=== PATIENT | female | born 1955 | race Caucasian/White ===

== ENCOUNTER → 2019-10-09 | Outpatient (CLI) | payer SELFPAY ==
--- NOTE | 2019-10-09 09:16 | Diagnostic Imaging Report ---
PROCEDURE: US left lower extremity venous. TECHNIQUE: Multiple Real-time grayscale images were obtained over the left lower extremity in various projections. Additional duplex Doppler and color Doppler images were also obtained. INDICATION: Left leg pain. FINDINGS: There is no evidence of left lower extremity DVT. The left lower extremity deep venous system shows normal compressibility with normal response to augmentation and Valsalva. In addition, the patient complains of a lump at the level of the mid thigh. This area was evaluated with ultrasound. No underlying abnormality is detected. IMPRESSION: No evidence of left lower extremity DVT. Dictated by: Dictated on workstation # [id number]
== END ==
LOC: RAD 08:00
PROVIDERS: ATTEND Physician Assistant
DX: M79.662 Pain in left lower leg (principal)

== ENCOUNTER 2021-03-25 10:14 | Day surgery (SDC) | payer MEDICARE, OTHER ==
[~2021-03-25] VITALS: Ht 160 cm; Wt 48.0 kg
[~2021-03-25 10:14] MED LIST: COD1CAPS13 PO; CYPR4TAB41 PO; MULT-593 PO; [UNRECOGNIZED DRUG - OTHER] TP
[2021-03-25 10:15] VITALS: BP 124/98
[2021-03-25] MEDS ORDERED: LACTATED RINGERS 1,000 ML IV STA (10:17)
[2021-03-25] MEDS ORDERED: LACTATED RINGERS 1,000 ML IV ONE (10:22)
[2021-03-25] MEDS ORDERED: HURRICAINE EXT TUBE (BENZOCAINE) XX PRN (10:30)
--- NOTE | 2021-03-25 10:53 | Progress Note-Pre Operative ---
Pre-Operative Progress Note H&P Reviewed The H&P was reviewed, patient examined and no changes noted. Date Seen by Provider: Mar 25, 2021 Time Seen by Provider: 10:53 Date H&P Reviewed: Mar 25, 2021 Time H&P Reviewed: 10:53 Pre-Operative Diagnosis: weight loss, blood in stool, dysphagia HUSSAIN WOODS DO Mar 25, 2021 10:53
[2021-03-25] MEDS ORDERED: MIDAZOLAM 2 MG/2 ML (VERSED) VIAL ONE (11:21)
[2021-03-25] MEDS ORDERED: PROPOFOL INJECTION 50 ML IV ONE (11:22)
--- NOTE | 2021-03-25 12:26 | Anesthesia-General Post-Op ---
MAC Patient Condition Mental Status/LOC: Same as Preop Cardiovascular: Satisfactory Nausea/Vomiting: Absent Respiratory: Satisfactory Pain: Controlled Complications: Absent Post Op Complications Complications None Follow Up Care/Instructions Patient Instructions None needed. Anesthesiology Discharge Order Discharge Order Patient is doing well, no complaints, stable vital signs, no apparent adverse anesthesia problems. No complications reported per nursing. ROSAURA SCHWARZ CRNA Mar 25, 2021 12:26
[2021-03-25 12:30] VITALS: BP 136/84
--- NOTE | 2021-03-25 12:31 | Progress Note-Post Operative ---
Post-Operative Progess Note Surgeon (s)/Industrial Engineering Director (s) Surgeon HUSSAIN WOODS DO Industrial Engineering Director: na Pre-Operative Diagnosis weight loss, blood in stool, dysphagia Post-Operative Diagnosis normal egd, colon polyps diverticulosis, hemorrhoids Procedure & Operative Findings Date of Procedure 03/25/21 Procedure Performed/Findings egd, colonoscopy c snare polypectomy x 3 and hot bx polypectomy x 1 Anesthesia Type per lead care manager Estimated Blood Loss Estimated blood loss (mL): none Specimens/Packing Specimens Removed colon polyps HUSSAIN WOODS DO Mar 25, 2021 12:31
[2021-03-25 12:35] VITALS: BP 124/70
[2021-03-25 13:02] VITALS: BP 109/69
[2021-03-25 13:09] VITALS: BP 109/69
--- NOTE | 2021-03-25 17:08 | OPERATIVE REPORT ---
DATE OF SERVICE: 03/25/2021 PREOPERATIVE DIAGNOSES: Weight loss, blood in stool, dysphagia. POSTOPERATIVE DIAGNOSES: Normal esophagogastroduodenoscopy, colon polyps, diverticulosis, hemorrhoids. PROCEDURE: EGD and colonoscopy with snare polypectomy x3 and hot biopsy polypectomy x1. SURGEON: Hussain Kat DO ANESTHESIA: Per JAVA LEAD. ESTIMATED BLOOD LOSS: None. COMPLICATIONS: None. INDICATIONS: The patient is a 65-year-old female with weight loss, blood in stool and dysphagia. She understands risks and benefits of procedure and wished to proceed. Consent was signed in the chart. DESCRIPTION OF PROCEDURE: The patient was taken to the endoscopy suite, placed in left lateral recumbent position. Timeout was performed. Scope was inserted in mouth, down the esophagus, stomach and into the duodenum without difficulty. There were no polyps, masses or ulcerations within the duodenum. Scope was slowly retracted back into the stomach where it was further insufflated. No polyps, masses or ulcerations. Scope was retroflexed noting no other pathology. Scope was returned to its normal position, slowly withdrawn to distal esophagus, which had normal appearance. No polyps, masses or ulcerations. Scope was then slowly retracted back until completely removed. Digital rectal exam was performed. No palpable polyps, masses or ulcerations. Some slight hemorrhoidal disease. Scope was inserted in the rectum and advanced all the way to cecum with minimal difficulty. Prep was adequate with irrigation and suction. The cecum had 2 small polyps, which snare polypectomies were performed. Scope was then continuously retracted in the ascending colon, another polyp was present, which snare polypectomy was performed. Scope was then continuously retracted back. No other polyps, masses or ulcerations within the ascending, transverse and descending colon. In the sigmoid colon, a small polyp was present, which hot biopsy polypectomy was performed. Scope was then continuously retracted back noting just some minimal amount of diverticulosis. Scope was then continuously retracted back in the rectum, it was also retroflexed noting hemorrhoidal disease. No other pathology. Scope was returned to its normal position, slowly withdrawn until completely removed. The patient tolerated procedure well without any complications. She was taken to recovery room in stable condition. RECOMMENDATIONS: Follow up in the office in 2 weeks to discuss biopsy results. We would also consider imaging to further evaluate for weight loss. The patient will need repeat colonoscopy in 3 to 5 years depending upon pathology. Any issues before that be seen at that time. Job ID: [id number] DocumentID: [id number] Dictated Date: 03/25/2021 12:34:29 Internet Network Specialist Date: 03/25/2021 17:08:24 Dictated By: HUSSAIN KAT DO
== END 2021-03-25 13:09 | disposition home or self-care (01) ==
LOC: ENDO 10:14
PROVIDERS: ATTEND Surgery
DX: D12.0 Benign neoplasm of cecum (principal); D12.2 Benign neoplasm of ascending colon; K57.31 Diverticulosis of large intestine without perforation or abscess with bleeding; K64.9 Unspecified hemorrhoids; F17.210 Nicotine dependence, cigarettes, uncomplicated; Z80.0 Family history of malignant neoplasm of digestive organs
CPT/HCPCS: 88305

== ENCOUNTER → 2021-04-08 | Outpatient (CLI) | payer MEDICARE, OTHER ==
[~2021-04-08] MED LIST changes: +CATHETER FLUSH 10 ML SYR IV PRN; +HOLD METFORMIN - RECEIVED CONTRAST 20 ML VIAL IV SCH; +IOHEXOL 350 MG/ML 100 ML (OMNIPAQUE 350) VIAL IV ONE; +NS 100 ML (IVPB) BAG IV ONE
[2021-04-08 08:45] LABS: CREATININE SERUM 0.73 MG/DL (0.60-1.30)
--- NOTE | 2021-04-08 11:27 | Diagnostic Imaging Report ---
EXAMINATION: CT chest, abdomen and pelvis with intravenous contrast. TECHNIQUE: Multiple contiguous axial images were obtained through the chest, abdomen and pelvis after the uneventful administration of intravenous contrast. All CT scans use one or more of the following dose optimizing techniques: automated exposure control, MA and/or KvP adjustment based on patient size and exam type or iterative reconstruction. HISTORY: Unintentional weight loss. COMPARISON: 03/20/2008 FINDINGS: There is no edema or pneumonia. No pleural effusion. No pneumothorax. There is a 4 mm right upper lobe pulmonary nodule (series 3, image 35). There is no axillary or supraclavicular lymphadenopathy. There is no mediastinal lymphadenopathy. Heart size is normal. There are no coronary artery calcifications. No pericardial effusion. Aorta is normal in caliber. The liver is normal without focal lesion. There is no biliary ductal dilation. Gallbladder is normal. Pancreas is normal. Spleen is normal. Adrenal glands are normal. The kidneys are normal. There is no hydronephrosis. Urinary bladder is normal. Bowel is normal in caliber without obstruction or inflammation. No free fluid or air. No abdominal or pelvic lymphadenopathy. Aorta is normal in caliber without aneurysm. There are no suspicious osseous lesions. IMPRESSION: 1. Right upper lobe 4 mm pulmonary nodule. According to the Fleischner Society guidelines: In a low risk patient, no routine follow up is recommended. In a high risk patient, consider optional CT at 12 months. 2. No acute abnormality in the chest, abdomen or pelvis. Dictated by: Dictated on workstation # [id number]
== END ==
LOC: RAD 08:03
PROVIDERS: ATTEND Surgery
DX: R63.4 Abnormal weight loss (principal); R91.1 Solitary pulmonary nodule
CPT/HCPCS: 36415; 71260; 74177; 82565; 84520

== ENCOUNTER → 2022-04-23 | Outpatient (CLI) | payer MEDICARE, OTHER ==
[~2022-04-23] MED LIST changes: -CATHETER FLUSH 10 ML SYR IV PRN
[2022-04-23 12:27] LABS: CREATININE SERUM 0.79 MG/DL (0.60-1.30)
--- NOTE | 2022-04-23 16:48 | Diagnostic Imaging Report ---
PROCEDURE: CT chest, abdomen, and pelvis with contrast. TECHNIQUE: Multiple contiguous axial images were obtained through the chest, abdomen, and pelvis after the administration of intravenous contrast. Auto Exposure Controls were utilized during the CT exam to meet ALARA standards for radiation dose reduction. INDICATION: Abnormal weight loss. COMPARISON: 04/08/2021 FINDINGS: CT CHEST: No abnormality in the trachea. Unchanged 4 mm right upper lobe pulmonary nodule. No suspicious pulmonary nodules. There is no pneumonia or edema. No pleural effusion or pneumothorax. No supraclavicular or axillary lymphadenopathy. Normal heart size. No mediastinal or hilar lymphadenopathy. Normal caliber thoracic aorta. No concerning focal osseous lesions in the chest. CT ABDOMEN AND PELVIS: No free intraperitoneal air or fluid. The liver, gallbladder, spleen and pancreas are normal. No adrenal mass. No renal mass or obstructive uropathy. The urinary bladder is normally filled. Hysterectomy. No adnexal mass. Stomach is decompressed. There are no dilated loops of small bowel. No pericolonic inflammatory change. No worrisome focal osseous lesions. Atherosclerotic aorta is normal in caliber. No abdominal or pelvic lymphadenopathy. IMPRESSION: 1. No adverse development that would suggest neoplastic process. 2. Stable benign 4 mm right upper lobe pulmonary nodule. Dictated by: Dictated on workstation # [id number]
== END ==
LOC: RAD 11:48
PROVIDERS: ATTEND Nurse Practitioner
DX: R63.4 Abnormal weight loss (principal); R91.1 Solitary pulmonary nodule
CPT/HCPCS: 36415; 71260; 74177; 82565; 84520

== ENCOUNTER 2022-04-28 11:02 | Outpatient (CLI) | payer MEDICARE, OTHER ==
[~2022-04-28] VITALS: Ht 160 cm; Wt 45.4 kg
[~2022-04-28 11:02] MED LIST changes: -HOLD METFORMIN - RECEIVED CONTRAST 20 ML VIAL IV SCH; -IOHEXOL 350 MG/ML 100 ML (OMNIPAQUE 350) VIAL IV ONE; -NS 100 ML (IVPB) BAG IV ONE
[2022-04-29] MEDS ORDERED: VITA-189 PO (08:53)
== END 2022-04-29 08:56 ==
LOC: PREOP 11:02
PROVIDERS: ATTEND Surgery
DX: Z01.818 Encounter for other preprocedural examination (principal); K62.5 Hemorrhage of anus and rectum; R63.4 Abnormal weight loss

== ENCOUNTER 2022-05-07 11:46 | Day surgery (SDC) | payer MEDICARE, OTHER ==
[~2022-05-07] VITALS: Ht 160 cm; Wt 45.4 kg
[~2022-05-07 11:46] MED LIST changes: +VITA-189 PO
[2022-05-07] MEDS ORDERED: LACTATED RINGERS 1,000 ML IV STA (11:50)
[2022-05-07] MEDS ORDERED: HURRICAINE EXT TUBE (BENZOCAINE) XX PRN (12:00)
[2022-05-07 12:05] VITALS: BP 116/79
[2022-05-07] MEDS ORDERED: PROPOFOL INJECTION 50 ML IV ONE (12:52)
--- NOTE | 2022-05-07 12:56 | Progress Note-Pre Operative ---
Pre-Operative Progress Note Date H&P Reviewed: May 07, 2022 Time H&P Reviewed: 12:56 History & Physical: H&P Reviewed, Patient Examed, No changes noted Pre-Operative Diagnosis: wt loss, blood per rectum HUSSAIN WOODS DO May 07, 2022 12:56
[2022-05-07] MEDS ORDERED: proPOfol 200 MG/20 ML (DIPRIVAN) VIAL IV ONE (13:29)
[2022-05-07 13:45] VITALS: BP 96/55
--- NOTE | 2022-05-07 13:46 | Discharge Inst-Simple/Standard ---
Discharge Inst-Standard Patient Instructions/Follow Up Plan of Care/Instructions/FU: 2 weeks Shey Activity as Tolerated: Yes Discharge Diet: No Restrictions HUSSAIN WOODS DO May 07, 2022 13:46
--- NOTE | 2022-05-07 13:49 | Progress Note-Post Operative ---
Post-Operative Progess Note Surgeon (s)/Tractor Trailer Mechanic (s) Surgeon HUSSAIN WOODS DO Tractor Trailer Mechanic: na Pre-Operative Diagnosis wt loss, blood per rectum Post-Operative Diagnosis Small Hiatal Hernia Diverticulosis Sigmoid Polyp Procedure & Operative Findings Date of Procedure 05/07/22 Procedure Performed/Findings EGD Colonoscopy with hot biopsy polypectomy Anesthesia Type per MDa Estimated Blood Loss Estimated blood loss (mL): none Specimens/Packing Specimens Removed Sigmoid polyp x1 HUSSAIN WOODS DO May 07, 2022 13:49
[2022-05-07 13:50] VITALS: BP 100/71
[2022-05-07 13:55] VITALS: BP 112/62
[2022-05-07 14:15] VITALS: BP 113/76
[2022-05-07 14:25] VITALS: BP 113/76
--- NOTE | 2022-05-07 15:02 | Anesthesia-General Post-Op ---
MAC Patient Condition Mental Status/LOC: Same as Preop Cardiovascular: Satisfactory Nausea/Vomiting: Absent Respiratory: Satisfactory Pain: Controlled Complications: Absent Post Op Complications Complications None Follow Up Care/Instructions Patient Instructions None needed. Anesthesiology Discharge Order Discharge Order Patient was doing well after the procedure with no complaints, stable vital signs, no apparent adverse anesthesia problems. No complications reported per nursing. LUIS ENRIQUE NÚÑEZ 23, 2023 15:02
--- NOTE | 2022-05-07 19:51 | OPERATIVE REPORT ---
DATE OF SERVICE: 05/07/2022 PREOPERATIVE DIAGNOSIS: Weight loss and rectal bleeding. POSTOPERATIVE DIAGNOSES: Diverticulosis, sigmoid polyp, small hiatal hernia. PROCEDURE: EGD, colonoscopy with hot biopsy polypectomy x1. SURGEON: Artis Kat DO ANESTHESIA: Per MDA. ESTIMATED BLOOD LOSS: None. COMPLICATIONS: None. INDICATIONS: The patient is a 66-year-old female with weight loss and blood per rectum. She understands risks and benefits of procedure and wished to proceed. Consent was signed in chart. DESCRIPTION OF PROCEDURE: The patient was taken to endoscopy suite, placed in the left lateral recumbent position. Timeout was performed. Scope was inserted in the mouth, down the esophagus, stomach, into the duodenum without difficulty. No polyps, masses or ulcerations within the duodenum. Scope was slowly retracted back into the stomach, where it was further insufflated. No polyps, masses or ulcerations. Scope was retroflexed noting a small hiatal hernia, no other pathology. Scope was returned to its normal position, slowly withdrawn until distal esophagus. No polyps, masses or ulcerations. Scope was slowly retracted back until completely removed. Digital rectal exam was performed. No palpable polyps, masses or ulcerations. Scope was inserted in the rectum, advanced all the way to the cecum with minimal difficulty. The patient repositioned a couple times in order to advance scope. Once in the cecum, the prep was adequate. Scope was then slowly retracted back. No polyps, masses or ulcerations in the cecum, ascending, transverse, descending colon. In the sigmoid colon, some diverticulosis present. One polyp present. Hot biopsy polypectomy was performed. Scope was then continuously retracted back in the rectum where it was also retroflexed noting no other pathology. Scope was returned to its normal position, slowly withdrawn until completely removed. The patient tolerated the procedure well without complications, taken to recovery room in stable condition. RECOMMENDATIONS: The patient will need repeat colonoscopy in 5 years unless he has any issues before that, be seen at that time. We will recommend high fiber diet due to diverticulosis. Continue on current medications. The patient's weight loss, she had CT scan chest, abdomen and pelvis, which did not have any acute abnormalities. She has a stable appearance of 4-mm right upper lobe nodule. I would consider a workup of gallbladder if continues to have weight loss for another possible cause or source. Job ID: [id number] DocumentID: [id number] Dictated Date: 05/07/2022 13:54:31 Residential Sales Date: 05/07/2022 19:49:00 Dictated By: DO RADHA BARONE
== END 2022-05-07 14:25 | disposition home or self-care (01) ==
LOC: ENDO 11:46
PROVIDERS: ATTEND Surgery
DX: K63.5 Polyp of colon (principal); K57.30 Diverticulosis of large intestine without perforation or abscess without bleeding; K44.9 Diaphragmatic hernia without obstruction or gangrene; R91.1 Solitary pulmonary nodule; F17.210 Nicotine dependence, cigarettes, uncomplicated; Z28.310 Unvaccinated for COVID-19
CPT/HCPCS: 88305

== ENCOUNTER 2022-09-09 11:45 | Observation (INO) | payer MEDICARE, OTHER ==
[2022-09-09] VITALS (10 sets, daily range): BP systolic 92–118; BP diastolic 57–84
[~2022-09-09] VITALS: Ht 154 cm; Wt 41.0 kg
[2022-09-09] MEDS ORDERED: ASPIRIN 81 MG CHEWABLE TABLET PO ONE (12:00)
--- NOTE | 2022-09-09 12:00 | ED Chest Pain ---
General Chief Complaint: Chest Pain Stated Complaint: CHEST PAINS Nursing Triage Note: PT TO ED WITH C/O CHEST PAIN AND PALPITATIONS THAT HAS BEEN ON AND OFF FOR THE PAST 2 MONTHS AND PROGRESSIVELY GETTING WORSE. WORSENDING THIS AM AFTER WALKING UP STAIRS. WAS SCHEDULED TO SEE HER PCP SOON BUT COULD NOT WAIT. PT ALSO C/O SOB. Source: patient Exam Limitations: no limitations History of Present Illness Date Seen by Provider: Sep 09, 2022 Time Seen by Provider: 11:58 Initial Comments Patient is a 66-year-old female presents ED with chest pain and heart palpitatio ns. She states the symptoms have been on and off for the past 2 months. She states symptoms appear to be getting worse. She states the chest pain usually happens with exertion. She gets winded. Was doing walking and stairs today started having shortness of breath and chest tightness. She is currently pain- free but reports heart palpitations. She has had intermittent heart pa lpitations over the past 2 months as well. History of cardiac work-up several years ago. Strong family history of cardiac disease. She reports nausea without vomiting. She states she feels like she is developing a headache. She reports mild cough. History of smoking and high cholesterol. Denies history of COPD, asthma, CHF, coronary artery disease. She states usually when the symptoms do occur she does breathing techniques to help control her breathing and her chest pain. Denies of any recent travels or surgeries. Denies any leg swelling. Denies fever, chills, body aches, vomiting, diarrhea Allergies and Home Medications Allergies Coded Allergies: levofloxacin (Unverified Allergy, Unknown, 03/18/21) Patient Home Medication List Home Medication List Reviewed: Yes Cod Liver Oil (Cod Liver Oil) 1 Each Capsule, 2 EACH PO DAILY, (Reported) Entered as Reported by: OBI PATEL on 03/18/21 1100 Multivitamin with Minerals (Multiple Vitamin) 1 Each Tablet, 1 EACH PO DAILY, (Reported) Entered as Reported by: OBI PATEL on 03/18/21 1100 Vitamin B Complex (B Complex) 1 Each Tablet, 1 EACH PO, (Reported) Entered as Reported by: ROSIO ADKINS on 04/29/22 0853 Review of Systems Review of Systems Constitutional: No chills, No fever, No malaise, No weakness EENTM: No Double Vision, No Eye Pain Respiratory: Denies Cough; Shortness of Air Cardiovascular: Chest Pain, Palpitations Gastrointestinal: Denies Abdominal Pain, Denies Diarrhea, Denies Nausea, Denies Vomiting Genitourinary: Denies Burning, Denies Discharge Musculoskeletal: No back pain, No joint pain, No joint swelling, No muscle pain, No muscle stiffness Skin: No change in color, No change in hair/nails All Other Systems Reviewed Negative Unless Noted: Yes Past Oeiaenf-Lbmsnm-Pqfkgk Hx Immunizations Up To Date First/Initial COVID19 Vaccinat: NO Second COVID19 Vaccination Marvel: NO Third COVID19 Vaccination Date: NO Seasonal Allergies Seasonal Allergies: Yes Past Medical History Surgeries: Yes (CARPAL TUNNEL) Section Respiratory: No Cardiac: Yes High Cholesterol Neurological: No Genitourinary: No Gastrointestinal: Yes Gastroesophageal Reflux Musculoskeletal: Yes Arthritis Endocrine: No HEENT: No Cancer: No Colon Psychosocial: No Integumentary: No Blood Disorders: No Physical Exam Vital Signs Vital Signs - First Documented 09/09/22 11:51 Temp 36.2 Pulse 108 Resp 26 B/P (MAP) 148/92 (110) Pulse Ox 100 Capillary Refill : Height, Weight, BMI Height: '" Weight: lbs. oz. kg; 16.00 BMI Method: General Appearance: No Apparent Distress, WD/WN HEENT: PERRL/EOMI, TMs Normal, Normal ENT Inspection, Pharynx Normal Neck: Full Range of Motion, Normal Inspection, Non Tender, Supple Respiratory: Chest Non Tender, Lungs Clear, Normal Breath Sounds Cardiovascular: No Gallop, No JVD, No Murmur, Tachycardia Gastrointestinal: Normal Bowel Sounds, No Organomegaly, No Pulsatile Mass Neurologic/Psychiatric: Alert, Oriented x3, No Motor/Sensory Deficits, Normal Mood/Affect, carpenter repair II-XII Norm as Tested Skin: Normal Color, Warm/Dry Progress/Results/Core Measures Results/Orders Lab Results Laboratory Tests Test 09/09/22 11:52 09/09/22 13:54 Range/Units White Blood Count 6.2 4.3-11.0 10^3/uL Red Blood Count 4.14 3.80-5.11 10^6/uL Hemoglobin 14.6 11.5-16.0 g/dL Hematocrit 42 35-52 % Mean Corpuscular Volume 100 H 80-99 fL Mean Corpuscular Hemoglobin 35 H 25-34 pg Mean Corpuscular Hemoglobin Concent 35 32-36 g/dL Red Cell Distribution Width 12.1 10.0-14.5 % Platelet Count 294 130-400 10^3/uL Mean Platelet Volume 9.8 9.0-12.2 fL Immature Granulocyte % (Auto) 0 % Neutrophils (%) (Auto) 53 42-75 % Lymphocytes (%) (Auto) 40 12-44 % Monocytes (%) (Auto) 6 0-12 % Eosinophils (%) (Auto) 1 0-10 % Basophils (%) (Auto) 1 0-10 % Neutrophils # (Auto) 3.3 1.8-7.8 10^3/uL Lymphocytes # (Auto) 2.5 1.0-4.0 10^3/uL Monocytes # (Auto) 0.4 0.0-1.0 10^3/uL Eosinophils # (Auto) 0.0 0.0-0.3 10^3/uL Basophils # (Auto) 0.0 0.0-0.1 10^3/uL Immature Granulocyte # (Auto) 0.0 0.0-0.1 10^3/uL Prothrombin Time 12.3 12.2-14.7 SEC INR Comment 0.9 0.8-1.4 Activated Partial Thromboplast Time 29 24-35 SEC D-Dimer 0.54 H 0.00-0.49 UG/ML Sodium Level 140 135-145 MMOL/L Potassium Level 3.9 3.6-5.0 MMOL/L Chloride Level 104 98-107 MMOL/L Carbon Dioxide Level 22 21-32 MMOL/L Anion Gap 14 5-14 MMOL/L Blood Urea Nitrogen 12 7-18 MG/DL Creatinine 0.76 0.60-1.30 MG/DL Estimat Glomerular Filtration Rate 86 BUN/Creatinine Ratio 16 Glucose Level 153 H 70-105 MG/DL Calcium Level 10.7 H 8.5-10.1 MG/DL Corrected Calcium 8.5-10.1 MG/DL Magnesium Level 1.8 1.6-2.4 MG/DL Total Bilirubin 0.2 0.1-1.0 MG/DL Aspartate Amino Transf (AST/SGOT) 17 5-34 U/L Alanine Aminotransferase (ALT/SGPT) 16 0-55 U/L Alkaline Phosphatase 57 40-136 U/L Myoglobin 16.6 10.0-92.0 NG/ML Troponin I < 0.028 <0.028 NG/ML B-Type Natriuretic Peptide < 10.0 <100.0 PG/ML Total Protein 7.6 6.4-8.2 GM/DL Albumin 4.6 H 3.2-4.5 GM/DL Lipase 47 8-78 U/L My Orders Orders - ELI DOOLEY PA Ekg Tracing (09/09/22 11:47) Cbc With Automated Diff (09/09/22 11:50) Magnesium (09/09/22 11:50) Chest 1 View, Ap/Pa Only (09/09/22 11:50) Comprehensive Metabolic Panel (09/09/22 11:50) Myoglobin Serum (09/09/22 11:50) Protime With Inr (09/09/22 11:50) Partial Thromboplastin Time (09/09/22 11:50) Monitor-Rhythm Ecg Trace Only (09/09/22 11:50) Lipid Panel (09/10/22 06:00) Ed Iv/Invasive Line Start (09/09/22 11:50) Lipase (09/09/22 11:50) Bnp [place] (09/09/22 11:50) Troponin I [place] (09/09/22 11:50) Aspirin Chewable Tablet (Baby Aspirin Ch (09/09/22 12:00) Fibrin Degradation Products (09/09/22 11:57) Ct Angio Chest W (R/O Pe) (09/09/22 12:25) Iohexol Injection (Omnipaque 350 Mg/Ml 1 (09/09/22 12:30) Received Contrast (Hold Metformin- Contr (09/09/22 12:30) Ns (Ivpb) 100 Ml (Sodium Chloride 0.9% 1 (09/09/22 12:30) Nothing By Mouth (09/09/22 Lunch) Ns Iv 1000 Ml (Sodium Chloride 0.9%) (09/09/22 13:31) Troponin I [place] (09/09/22 14:00) Ed Admission (Communication) (09/09/22 13:32) Medications Given in ED Current Medications Medications Dose Ordered Sig/Alejandra Route Start Time Stop Time Status Last Admin Dose Admin Aspirin 324 mg ONCE ONCE PO 09/09/22 12:00 09/09/22 12:01 DC 09/09/22 12:03 324 MG Iohexol 100 ml ONCE ONCE IV 09/09/22 12:30 09/09/22 12:31 DC 09/09/22 12:37 46 ML Sodium Chloride 100 ml ONCE ONCE IV 09/09/22 12:30 09/09/22 12:31 DC 09/09/22 12:37 80 ML Vital Signs/I&O 09/09/22 11:51 Temp 36.2 Pulse 108 Resp 26 B/P (MAP) 148/92 (110) Pulse Ox 100 Blood Pressure Mean: 110 Comment Sinus tachycardia, left atrial lodgment, possible right ventricular conduction delay, minimal ST depression, 104 bpm, QRS duration 84 MS, QTc 404 MS Departure Communication (PCP) Reviewed previous ER visits, H&P, lab testing . patient is a 66-year-old female who presents to ED with chest pain shortness of breath. Symptoms over the past few months worse over the past week. Chest pain with exertion with shortness of breath. Differential diagnoses ACS, PE, pneumonia, exercise-induced asthma. History of smoking, dyslipidemia. Strong family cardiac history. EKG shows sinus tachycardia with minimal ST depression. She did receive a full aspirin 325mg. No current chest pain. Nitro was held. lab work was grossly unremarkable. Normal troponin and BNP. She had no chest pain during her stay but seem to be hyperventilating. Patient Was able to control her breathing here. D-dimer slightly elevated. CT angio of the chest was negative for PE but did note a stable pulmonary nodule upper right nodule. No evidence of pleural effusion, pneumonia, pneumothorax. No wheezing. No recent URI. She reports re cent weight loss. Patient was discussed with Dr. Herman circus train supervisor. Recommended n.p.o. and started on liter fluid and delta troponin at 2 PM. May require cardiac cath later this evening. Patient was discussed with Dr. Billy hospitalist who accept patient. Concern for unstable angina Impression Primary Impression: Chest pain Disposition: ADMITTED INPATIENT Condition: Stable Admissions Decision to Admit Reason: Admit from ER (General) Decision to Admit/Date: Sep 09, 2022 Time/Decision to Admit Time: 12:19 Departure-Patient Inst. Referrals: MODESTO LAI DO (PCP/Family) Primary Care Physician ELI DOOLEY Sep 09, 2022 12:00
[2022-09-09 12:02] LABS: BASOPHILS % (AUTO) 1 % (0-10); EOSINOPHILS % (AUTO) 1 % (0-10); HEMATOCRIT 42 % (35-52); HEMOGLOBIN 14.6 g/dL (11.5-16.0); LYMPHOCYTES # (AUTO) 2.5 10^3/uL (1.0-4.0); LYMPHOCYTES % (AUTO) 40 % (12-44); MEAN CORPUSCULAR HEMOGLOBIN 35 pg (25-34); MEAN CORPUSCULAR HGB CONC 35 g/dL (32-36); MEAN CORPUSCULAR VOLUME 100 fL (80-99); MEAN PLATELET VOLUME 9.8 fL (9.0-12.2); MONOCYTES # (AUTO) 0.4 10^3/uL (0.0-1.0); MONOCYTES % (AUTO) 6 % (0-12); NEUTROPHILS # (AUTO) 3.3 10^3/uL (1.8-7.8); NEUTROPHILS % (AUTO) 53 % (42-75); PLATELET COUNT 294 10^3/uL (130-400); WHITE BLOOD COUNT 6.2 10^3/uL (4.3-11.0)
[2022-09-09 12:16] LABS: ALBUMIN 4.6 GM/DL (3.2-4.5)
[2022-09-09 12:17] LABS: CHLORIDE 104 MMOL/L (98-107); POTASSIUM 3.9 MMOL/L (3.6-5.0); SODIUM 140 MMOL/L (135-145)
[2022-09-09 12:18] LABS: CALCIUM 10.7 MG/DL (8.5-10.1)
[2022-09-09 12:19] LABS: GLUCOSE 153 MG/DL (70-105); INR 0.9 (0.8-1.4); PROTHROMBIN TIME PATIENT 12.3 SEC (12.2-14.7); TOTAL PROTEIN 7.6 GM/DL (6.4-8.2)
[2022-09-09 12:20] LABS: CARBON DIOXIDE 22 MMOL/L (21-32)
[2022-09-09 12:21] LABS: BILIRUBIN,TOTAL 0.2 MG/DL (0.1-1.0)
[2022-09-09 12:22] LABS: ALKALINE PHOSPHATASE 57 U/L (40-136); FIBRIN DEGRADATION PRODUCTS 0.54 UG/ML (0.00-0.49)
[2022-09-09 12:23] LABS: CREATININE SERUM 0.76 MG/DL (0.60-1.30); GFR ESTIMATED 86
[2022-09-09 12:24] LABS: BUN/CREATININE RATIO 16
[2022-09-09 12:26] LABS: ALANINE AMINOTRANSFERASE 16 U/L (0-55); MAGNESIUM 1.8 MG/DL (1.6-2.4)
[2022-09-09 12:27] LABS: LIPASE 47 U/L (8-78)
[2022-09-09] MEDS ORDERED: NS 100 ML (IVPB) BAG IV ONE (12:30)
[2022-09-09] MEDS ORDERED: IOHEXOL 350 MG/ML 100 ML (OMNIPAQUE 350) VIAL IV ONE (12:30)
[2022-09-09] MEDS ORDERED: HOLD METFORMIN - RECEIVED CONTRAST 20 ML VIAL IV SCH (12:30)
--- NOTE | 2022-09-09 12:37 | Diagnostic Imaging Report ---
INDICATION: Chest pain Single AP view of the chest is obtained. COMPARISON: No previous study is available for comparison at this time. FINDINGS: Heart size and pulmonary vasculature are within normal limits, and the lungs are clear, bilaterally. IMPRESSION: Unremarkable chest. Dictated by: Dictated on workstation # [id number]
--- NOTE | 2022-09-09 13:21 | Diagnostic Imaging Report ---
PROCEDURE: CT angiography chest. TECHNIQUE: After intravenous administration of contrast, thin section axial CT angiography of the chest was performed. 3D MIP reconstructions were made. All CT scans use one or more of the following dose optimizing techniques: automated exposure control, MA and/or KvP adjustment based on a patient size and exam type, or iterative reconstruction. INDICATION: Chest pain, shortness of breath. COMPARISON: 04/23/2022 and March 2021. FINDINGS: No significant adenopathy within the chest. No aneurysmal dilatation of the thoracic aorta. The heart is within normal limits in size. No significant pericardial effusion. No pleural effusion. The trachea is patent. No pneumothorax. 0.5 cm subpleural right upper lobe pulmonary nodule is identified posteriorly. The lungs are otherwise clear of focal pulmonary opacity. No significant filling defect within the central or segmental pulmonary arteries. The minimally visualized upper abdomen is unremarkable. No acute osseous abnormality. IMPRESSION: No significant pulmonary embolus. No acute abnormality within the chest. 0.5 cm subpleural right upper lobe pulmonary nodule. This is not significantly changed since March 2021. If patient is at high risk for lung cancer, then a follow-up CT of the chest would be recommended in one year. If patient is at low risk for lung cancer, no definitive follow-up of this pulmonary nodule would be necessary. Dictated by: Dictated on workstation # [id number]
[2022-09-09] MEDS: NS IV 1000 ML 1,000 ML IV STA ×2 (13:35→13:37)
[2022-09-09] MEDS ORDERED: LIDOCAINE 1% INJ 20 ML VIAL ONE (14:12)
[2022-09-09] MEDS ORDERED: NS IV 1000 ML 1,000 ML ONE (14:13)
[2022-09-09] MEDS ORDERED: HEParin (CATH LAB) 2,000 ML IV ONE (14:13)
[2022-09-09] MEDS ORDERED: MIDAZOLAM 5 MG/5 ML (VERSED) VIAL ONE (14:30)
[2022-09-09] MEDS ORDERED: VERAPAMIL 5 MG/2 ML (CALAN) VIAL IV ONE (14:30)
[2022-09-09] MEDS ORDERED: HEParin 1000 UNIT/ML (10ML VIAL) FOR BOLUS ONE (14:30)
[2022-09-09] MEDS ORDERED: fentaNYL INJ 100 MCG/2 ML AMP ONE (14:30)
[2022-09-09] MEDS ORDERED: NITRO DRIP 25000 MCG/D5W 250 ML IV ONE (14:30)
--- NOTE | 2022-09-09 14:58 | Cardiac Procedure Note-CS/ASA ---
Pre-Procedure Note Pre-Op Procedure Note Date of Available H&P: Sep 09, 2022 Date H&P Reviewed: Sep 09, 2022 Time H&P Reviewed: 14:58 History & Physical: H&P Reviewed, Patient Examed, No changes noted Pre-Operative Diagnosis: CP Moderate Sedation PreProcedure Time 14:58 ASA Score 3 Airway Lungs Heart ASA score ASA 1: a normal healthy patient ASA 2: a patient with a mild systemic disease (mid diabetes, controlled hypertension, obesity ASA 3: a patient with a severe systemic disease that limits activity (angina, COPD, prior Myocardial infarction) ASA 4: a patient with an incapacitating disease that is a constant threat to life (CHF, renal failure) ASA 5: a moribund patient not expected to survive 24 hrs. (ruptured aneurysm) ASA 6: a declared brain- patient whose organs are being harvested. For emergent operations, add the letter E after the classification Mallampati Classification Grade 3 Sedation Plan Analgesia, Amnesia, Plan communicated to team members, Discussed options with patient/fam, Discussed risks with patient/fam The patient is an appropriate candidate to undergo the planned procedure, sedation, and anesthesia. The patient immediately re-assessed prior to indication. KENNY BROWN MD Sep 09, 2022 14:58
--- NOTE | 2022-09-09 15:07 | Consultation-Cardiology ---
HPI-Cardiology Cardiology Consultation Date of Consultation 09/09/22 Date of Admission Time Seen by Provider: 14:00 Indication: Chest pain HPI Patient is a 66 y/o female with history of HLP, tobaccoism, recent weight loss. Presented to the ER with complaints of intermittent chest pains and palpitations for the past 2 months. Patient reports chest pain with exertion, increasing over the past week. States she was walking her dog earlier in the day and had to stop d/t chest pain. Denies any history of CAD. Reports strong family hx CAD Home Medications & Allergies Allergies: Coded Allergies: levofloxacin (Unverified Allergy, Unknown, 03/18/21) Home Medication List Reviewed: Yes UGG-Mysyfp-Kiuvxb Hx Patient Social History Smoking Status: Current Everyday Smoker Type Used: Cigarettes 2nd Hand Smoke Exposure: Yes Recent Hopitalizations: No Alcohol Use?: No Past Medical History HLP, tobaccoism Review of Systems-General Review of Systems Constitutional: see HPI; No chills, No fever, No malaise, No weakness EENTM: see HPI Respiratory: see HPI, dyspnea on exertion; No orthopnea Cardiovascular: see HPI, chest pain, edema; No Hx of Intervention; palpitations; No syncope, No vascular heart diseas Musculoskeletal: No back pain, No joint pain, No joint swelling, No muscle pain, No muscle stiffness Skin: No change in color, No change in hair/nails All Other Systems Reviewed Negative Unless Noted: Yes Reviewed Test Results Reviewed Test Results Lab Laboratory Tests 09/09/22 11:52: White Blood Count 6.2, Red Blood Count 4.14, Hemoglobin 14.6, Hematocrit 42, Mean Corpuscular Volume 100H, Mean Corpuscular Hemoglobin 35H, Mean Corpuscular Hemoglobin Concent 35, Red Cell Distribution Width 12.1, Platelet Count 294, Mean Platelet Volume 9.8, Immature Granulocyte % (Auto) 0, Neutrophils (%) (Auto) 53, Lymphocytes (%) (Auto) 40, Monocytes (%) (Auto) 6, Eosinophils (%) (Auto) 1, Basophils (%) (Auto) 1, Neutrophils # (Auto) 3.3, Lymphocytes # (Auto) 2.5, Monocytes # (Auto) 0.4, Eosinophils # (Auto) 0.0, Basophils # (Auto) 0.0, Immature Granulocyte # (Auto) 0.0, Prothrombin Time 12.3, INR Comment 0.9, Activated Partial Thromboplast Time 29, D-Dimer 0.54H, Sodium Level 140, Potassium Level 3.9, Chloride Level 104, Carbon Dioxide Level 22, Anion Gap 14, Blood Urea Nitrogen 12, Creatinine 0.76, Estimat Glomerular Filtration Rate 86, BUN/Creatinine Ratio 16, Glucose Level 153H, Calcium Level 10.7H, Corrected Calcium , Magnesium Level 1.8, Total Bilirubin 0.2, Aspartate Amino Transf (AST/SGOT) 17, Alanine Aminotransferase (ALT/SGPT) 16, Alkaline Phosphatase 57, Myoglobin 16.6, Troponin I < 0.028, B-Type Natriuretic Peptide < 10.0, Total Protein 7.6, Albumin 4.6H, Lipase 47 09/09/22 13:54: ECG Impression ECG Initial ECG Rhythm: S.Tach Physical Exam Physical Exam Vital Signs Vital Signs - First Documented 09/09/22 09/09/22 11:51 14:12 Temp 36.2 Pulse 108 Resp 26 B/P (MAP) 148/92 (110) Pulse Ox 100 O2 Delivery Room Air Capillary Refill : Height, Weight, BMI Height: '" Weight: lbs. oz. kg; 16.65 BMI Method: General Appearance: No Apparent Distress, WD/WN HEENT: PERRL/EOMI, TMs Normal, Normal ENT Inspection, Pharynx Normal Neck: Full Range of Motion, Normal Inspection, Non Tender, Supple Respiratory: Chest Non Tender, Lungs Clear, Normal Breath Sounds Cardiovascular: No Gallop, No JVD, No Murmur, Tachycardia Gastrointestinal: Normal Bowel Sounds, No Organomegaly, No Pulsatile Mass Neurologic/Psychiatric: Alert, Oriented x3, No Motor/Sensory Deficits, Normal Mood/Affect, automatic spooler operator II-XII Norm as Tested Skin: Normal Color, Warm/Dry A/P-Cardiology Admission Diagnosis Chest pain HLP Tobaccoism Pulmonary nodule Assessment/Plan Chest pain, resembling unstable angina. EKG done in ER showing sinus tachycardia without acute ST changes. Initial troponin negative. Will repeat troponin. Patient reports chest pain and palpitations for the past 2 months, worsening recently. Multiple risk factors for underlying CAD. Will plan for [facility] for further evaluation HLP, has been taking fish oil as outpatient. Will evaluate lipid profile. Tobaccoism, educated on the importance of smoking cessation Pulmonary nodule CTA done today showing 0.5 cm subpleural right upper lobe pulmonary nodule. This is not significantly changed since March 2021. Hx of blood in stool, underwent colonoscopy with Dr. Kat in April 2022 showing small hiatal hernia, diverticulosis and sigmoid polyp GERD Recent weight loss Thank you for allowing us to participate in the management of Ms. Jordan. This is Jeannette Arreola PA-C, as a scribe for Dr. Herman. Patient was seen and evaluated with Jeannette, she was having recurrent chest pain, reporting improvement, classic angina symptoms. I interviewed and examined the patient and discussed the management plan with Jeannette, agree with the current scribed note Due to her classic symptoms, I decided to proceed with coronary angiogram urgently Monitor blood pressure and lipids Patient has history of pulmonary nodule which will be followed as an outpatient. Patient had recently lost significant weight. Had work-up done as an outpatient. JEANNETTE QUINTANA Sep 09, 2022 15:07 KENNY HERMAN MD Sep 09, 2022 15:26
[2022-09-09] MEDS ORDERED: morphine INJ 4 MG/ML 1 ML (VIAL/SYRINGE) IV PRN (15:15)
[2022-09-09] MEDS ORDERED: PATIENT MAY USE OWN MEDS, ALL PO SCH (15:15)
[2022-09-09] MEDS ORDERED: ONDANSETRON 4 MG/2 ML (SDV) Z0FRAN IVP PRN (15:15)
[2022-09-09] MEDS ORDERED: NITROGLYCERIN 0.4 MG SL TABS BTL 25'S SL PRN (15:15)
--- NOTE | 2022-09-09 15:51 | Cardiac Cath Report ---
Cardiac Cath Report Physician (s)/Branner Machine Tender (s) Physician KENNY BROWN MD Pre-Procedure Diagnosis Pre-Procedure Diagnosis: CP Post-Procedure Note Procedure Start Date: Sep 09, 2022 Procedure Start Time: 15:47 Name of Procedure: Left heart catheterization Aortic root angiogram Aortic arch angiogram Findings/Procedure Note PROCEDURE NOTE: 66-year-old lady with history of hypertension, admitted with acute chest pain resembling angina, cardiac catheterization was advised. After explaining the procedure to the patient, all pros and cons were explained, all questions were answered. The patient signed the consent and then she was placed in the cardiac catheterization laboratory. Groin was prepped in SL fashion local anesthesia was used. Sheath placed in the right radial artery, [place] catheter was advanced to the left ventricular cavity, pressure was measured, pullback LV to aorta was done, engage the right and left coronary system, angiogram was done. During the last angiogram on the right coronary artery, contrast was extravasated in the area around the aortic cusps. I exchanged the catheter and placed a pigtail catheter down to the aortic root and angiogram was done then pulled the pigtail up to the aortic arch and aortic arch angiogram was done then repeated fluoroscopy at the end of the procedure after waiting for 10 minutes and persistence of contrast around the aortic cusp was noted. At the end of the procedure the sheath was removed. Vascular band was used FINDINGS: Hemodynamics LV 101/7, end-diastolic pressure of 7 Aorta 106/71 mean of 88 ANATOMY: Left Main is free of obstructive disease Left Anterior Descending is free of obstructive disease Left Circumflex is free of obstructive disease Right Coronary Artery is dominant artery with no obstructive disease LV Gram was not done, pressure was measured Aorta evaluation done with aortic root angiogram showing normal aortic root no dissection or aneurysm no significant aortic regurgitation, there is persistence of contrast around the aortic cusps. Aortic arch angiogram showed normal aortic arch, no dissection or aneurysm, normal origin of the great vessels of the neck including the brachiocephalic artery, left carotid and left subclavian arteries CONCLUSION: Dominant right coronary system with no obstructive disease in the coronary system Normal left ventricular end-diastolic pressure Normal aortic root and aortic arch DISCUSSION AND RECOMMENDATION: Conservative management is recommended, repeat CT of the chest without contrast Anesthesia Type: Conscious Sedation Estimated blood loss (mL): 15 ml Contrast Amount: 42 ml Post-Procedure Diagnosis Post-operative diagnosis: Chest pain Coronary artery disease Hypertension Tobaccoism Pulmonary nodule KENNY BROWN MD Sep 09, 2022 15:51
[2022-09-09] MEDS: NS IV 1000 ML 1,000 ML IV SCH ×2 (16:50→20:22)
[2022-09-10 03:36] VITALS: BP 95/76
[2022-09-10 05:58] LABS: TRIGLYCERIDES 54 MG/DL (<150); VLDL CHOLESTEROL 11 MG/DL (5-40)
[2022-09-10 06:02] LABS: CHOLESTEROL 197 MG/DL (< 200)
[2022-09-10 06:03] LABS: HDL CHOLESTEROL 63 MG/DL (40-60)
[2022-09-10 07:40] VITALS: BP 110/82
[2022-09-10 08:11] LABS: ABSOLUTE RETIC # 43 10e9/uL (24-90); BASOPHILS % (AUTO) 0 % (0-10); EOSINOPHILS # (AUTO) 0.1 10^3/uL (0.0-0.3); EOSINOPHILS % (AUTO) 2 % (0-10); HEMATOCRIT 35 % (35-52); HEMOGLOBIN 12.3 g/dL (11.5-16.0); LYMPHOCYTES # (AUTO) 2.6 10^3/uL (1.0-4.0); LYMPHOCYTES % (AUTO) 51 % (12-44); MEAN CORPUSCULAR HEMOGLOBIN 35 pg (25-34); MEAN CORPUSCULAR HGB CONC 35 g/dL (32-36); MEAN CORPUSCULAR VOLUME 101 fL (80-99); MEAN PLATELET VOLUME 11.2 fL (9.0-12.2); MONOCYTES # (AUTO) 0.5 10^3/uL (0.0-1.0); MONOCYTES % (AUTO) 10 % (0-12); NEUTROPHILS # (AUTO) 1.9 10^3/uL (1.8-7.8); NEUTROPHILS % (AUTO) 37 % (42-75); PLATELET COUNT 245 10^3/uL (130-400); RETICULOCYTE % 1.24 % (0.50-2.40); WHITE BLOOD COUNT 5.1 10^3/uL (4.3-11.0)
--- NOTE | 2022-09-10 08:15 | History & Physical-Hospitalist ---
History of Present Illness HPI/Chief Complaint Patient is 66-year-old female with past medical history of tobacco abuse hyperlipidemia and weight loss who presented to the emergency department due to chest pain. She states that she has had on and off chest pain for roughly 2 months and is worse with exertion. She states her biggest issue though is that she gets dyspneic with any type of exertion and then developed some chest pain. She denies any history of cardiac disease but does report multiple members of her family have had heart disease. Is also concerned about her weight loss. She states she was 108 pounds in October 2021 and is now down to 89 pounds. He has had 2 colonoscopies in the last 18 months. She had one in March 2021 for weight loss so this seems to be more longstanding. She is concerned she has amyloidosis. She underwent cardiac cath yesterday which showed no significant disease though there was concern for extravasation of the contrast so cardiology commended repeat CT without contrast this morning to further evaluate. She reports she is very anxious to go as she has ducks that she needs to take care of. She is even considering leaving AGAINST MEDICAL ADVICE if not discharged in a timely fashion. Source: patient Date Seen 09/10/22 Time Seen by a Provider: 08:11 Attending Physician Donald Aguilera DO PCP Admitting Physician: Kassy Billy MD Attending Physician: Kassy Billy MD Referring Physician Date of Admission Sep 09, 2022 at 14:05 Home Medications & Allergies Home Medications Reviewed patient Home Medication Reconciliation performed by pharmacy medication reconciliations freezer laboratory technician and/or nursing. Patients Allergies have been reviewed. Allergies Allergies Coded Allergies levofloxacin (Unverified Allergy, Unknown, 03/18/21) Past Metbqww-Dncvxq-Foxoar Hx Patient Social History Tobacco Use?: Yes Tobacco type used: Cigarettes Smoking Status: Current Everyday Smoker Smokeless Tobacco Frequency: Current Everyday User Use of E-Cig and/or Vaping dev: No Substance use?: No Alcohol Use?: No Pt feels they are or have been: No Immunizations Up To Date First/Initial COVID19 Vaccinat: NO Second COVID19 Vaccination Marvel: NO Seasonal Allergies Seasonal Allergies: Yes Current Status status: No status: No Advance Directives: No Communicates: Verbally Primary Language: Cuban Preferred Spoken Language: Cuban Is interpretation needed?: No Sensory deficits: Vision impairment Implanted or Applied Medical D: None Past Medical History Surgeries: Section High Cholesterol Gastroesophageal Reflux Arthritis Colon Blood Disorders: No Review of Systems Constitutional: see HPI Physical Exam Physical Exam Vital Signs Vital Signs - First Documented 09/09/22 09/09/22 11:51 14:12 Temp 36.2 Pulse 108 Resp 26 B/P (MAP) 148/92 (110) Pulse Ox 100 O2 Delivery Room Air Capillary Refill : Less Than 3 Seconds Height, Weight, BMI Height: '" Weight: lbs. oz. kg; 17.28 BMI Method: General Appearance: No Apparent Distress, Thin Respiratory: Lungs Clear, No Respiratory Distress Cardiovascular: Regular Rate, Rhythm, No Murmur Gastrointestinal: Normal Bowel Sounds, Soft Extremity: Normal Capillary Refill, No Calf Tenderness, No Pedal Edema Neurologic/Psychiatric: Alert, Oriented x3, Normal Mood/Affect Results Results/Procedures Labs Laboratory Tests 09/09/22 11:52 09/10/22 05:17 Patient resulted labs reviewed. Imaging: Reviewed Imaging Report [facility] [place], [place] NAME: RAJNI MARTINEZ [facility] REC#: [id number] PT STATUS: ADM Mago : 1955 PHYSICIAN: ELI DOOLEY ADMIT DATE: 09/09/22/[facility] Signed Date of Exam:09/09/22 CHEST 1 VIEW, AP/PA ONLY INDICATION: Chest pain Single AP view of the chest is obtained. COMPARISON: No previous study is available for comparison at this time. FINDINGS: Heart size and pulmonary vasculature are within normal limits, and the lungs are clear, bilaterally. IMPRESSION: Unremarkable chest. Dictated by: Dictated on workstation # [id number] Dict: 09/09/22 1232 Trans: 09/10/22 0812 [facility] [id number] Interpreted by: BA ROMERO MD Electronically signed by: BA ROMERO MD 09/10/22811 [facility] [place] NAME: MICHELLERAJNI [employer] [facility] REC#: [id number] PT STATUS: REG ER : 1955 PHYSICIAN: ELI DOOLEY ADMIT DATE: 09/09/22/ER Signed Date of Exam:09/09/22 CT ANGIO CHEST W (R/O PE) PROCEDURE: CT angiography chest. TECHNIQUE: After intravenous administration of contrast, thin section axial CT angiography of the chest was performed. 3D MIP reconstructions were made. All CT scans use one or more of the following dose optimizing techniques: automated exposure control, MA and/or KvP adjustment based on a patient size and exam type, or iterative reconstruction. INDICATION: Chest pain, shortness of breath. COMPARISON: 04/23/2022 and March 2021. FINDINGS: No significant adenopathy within the chest. No aneurysmal dilatation of the thoracic aorta. The heart is within normal limits in size. No significant pericardial effusion. No pleural effusion. The trachea is patent. No pneumothorax. 0.5 cm subpleural right upper lobe pulmonary nodule is identified posteriorly. The lungs are otherwise clear of focal pulmonary opacity. No significant filling defect within the central or segmental pulmonary arteries. The minimally visualized upper abdomen is unremarkable. No acute osseous abnormality. IMPRESSION: No significant pulmonary embolus. No acute abnormality within the chest. 0.5 cm subpleural right upper lobe pulmonary nodule. This is not significantly changed since March 2021. If patient is at high risk for lung cancer, then a follow-up CT of the chest would be recommended in one year. If patient is at low risk for lung cancer, no definitive follow-up of this pulmonary nodule would be necessary. Dictated by: Dictated on workstation # [id number] Dict: 09/09/22 1311 Trans: 09/09/22 1342 [id number] Interpreted by: JADA ARNDT MD Electronically signed by: JADA ARNDT MD 09/09/22 1342 Assessment/Plan Admission Diagnosis Chest pain Admission Status: Observation Assessment and Plan Chest pain Trop negative s/p cath- no significant obstructive disease Cardiology noted extravasation of contrast during the cath- CT chest ordered this AM- spoke with radiology about it as delay in report Weight loss Tobacco abuse Had a colonoscopy and EGD 2x withint he last 18 months Polyps, divirticulosis, and hiatal hernia noted Referral for Dr Kat placed Plans to follow up with Dr Aguilera to establish care Concerned she has amyloidosis- recommended outpatient follow up with Dr Aguilera- I called and spoke with him regarding this Pulmonary nodule Stable since 2021 CT Needs outpatient follow up Copy Copies To 1: DONALD AGUILERA KATELYN M MD Sep 10, 2022 08:15
[2022-09-10 08:47] LABS: EOSINOPHILS % (MANUAL) 1 %; LYMPHOCYTES % (MANUAL) 51 %; MONOCYTES % (MANUAL) 12 %; NEUTROPHILS % (MANUAL) 33 %; REACTIVE LYMPHOCYTES 3 %
[2022-09-10 08:48] LABS: ANISOCYTOSIS SLIGHT
--- NOTE | 2022-09-10 08:57 | Cardiology Progress Note ---
Subjective Date Seen by Provider: Sep 10, 2022 Time Seen by Provider: 08:56 Subjective/Events-last exam Patient was seen at bedside, laying down comfortably, feeling better today. Review of Systems General: No Chills, No Night Sweats, No Fatigue, No Malaise, No Appetite, No Other HEENT: No Head Aches, No Visual Changes, No Eye Pain, No Ear Pain, No Dysphasia, No Sinus Congestion, No Post Nasal Drip, No Sore Throat, No Other Pulmonary: No Dyspnea, No Cough, No Pleuritic Chest Pain, No Other Cardiovascular: No: Chest Pain, Palpitations, Orthopnea, Paroxysmal Noc. Dyspnea, Edema, Lt Headedness, Other Objective-Cardiology Exam Last Set of Vital Signs Vital Signs 09/10/22 07:40 Temp 36.2 Pulse 74 Resp 20 B/P (MAP) 110/82 (91) Pulse Ox 98 O2 Delivery Room Air I&O Intake and Output 09/10/22 00:00 Intake Total 1400 ml Output Total 1100 ml Balance 300 ml Intake Oral 400 ml IV Total 1000 ml Output Urine Total 1100 ml Daily Weight Change Yes, 2-13 lbs General: Alert, Oriented X3, Cooperative HEENT: Atraumatic, PERRLA Neck: Supple, No JVD, No Thyromegaly Lungs: Clear to Auscultation, Normal Air Movement Heart: Regular Rate, Normal S1, Normal S2, No Murmurs Abdomen: Normal Bowel Sounds, Soft, No Tenderness, No Hepatosplenomegaly, No Masses Extremities: No Clubbing, No Cyanosis, No Edema, Normal Pulses, No Tenderness/Swelling Skin: No Rashes, No Breakdown, No Significant Lesion Neuro: Normal Gait, Normal Speech, Strength at 5/5 X4 Ext, Normal Tone, Sensation Intact Psych/Mental Status: Mental Status NL, Mood NL Results Lab Laboratory Tests 09/09/22 11:52 09/10/22 05:17 A/P-Cardiology Admission Diagnosis Chest pain HLP Tobaccoism Pulmonary nodule Assessment/Plan Chest pain, resembling unstable angina. Patient having chest pain and shortness of breath with exertion which has been worsening recently. Cardiac catheterization done on September 09, 2022 showing no significant obstructive disease There was some extravasation of contrast around the aortic valve. I am planning to repeat CT of the chest without contrast Continue to monitor HLP, has been taking fish oil as outpatient. Will evaluate lipid profile. Tobaccoism, educated on the importance of smoking cessation Pulmonary nodule CTA done today showing 0.5 cm subpleural right upper lobe pulmonary nodule. This is not significantly changed since March 2021. Hx of blood in stool, underwent colonoscopy with Dr. Kat in April 2022 showing small hiatal hernia, diverticulosis and sigmoid polyp GERD Recent weight loss Management per medical service KENNY BROWN MD Sep 10, 2022 08:57
[2022-09-10] MEDS ORDERED: ASPIRIN enteric coated 81MG TABLET PO SCH (09:00)
--- NOTE | 2022-09-10 09:36 | Discharge Inst-Simple/Standard ---
Discharge Inst-Standard Patient Instructions/Follow Up Plan of Care/Instructions/FU: Please continue to take your medications as written. Please follow up with your primary care doctor to follow up this hospital stay. Activity as Tolerated: Yes Discharge Diet: No Restrictions Return to The Hospital For: Chest pain, shortness of breath, fever, weakness, if you feel you are getting worse. OCTAVIA MINOR MD Sep 10, 2022 09:36
[2022-09-10] MEDS: NS IV 1000 ML 1,000 ML IV SCH (10:42)
[2022-09-10] MEDS ORDERED: BALANCE OF NATURE PO (11:08)
[2022-09-10] MEDS ORDERED: FISH1CAP15 PO (11:08)
[2022-09-10] MEDS ORDERED: OMEP40CA6 PO (11:08)
[2022-09-10 11:54] VITALS: BP 131/75
--- NOTE | 2022-09-10 14:31 | Diagnostic Imaging Report ---
PROCEDURE: CT chest without contrast. TECHNIQUE: Multiple contiguous axial images were obtained through the chest without the use of intravenous contrast. Auto Exposure Controls were utilized during the CT exam to meet ALARA standards for radiation dose reduction. INDICATION: Chest pain COMPARISON with a study one day prior. Some mild ectasia of the ascending aorta and aortic root stable from prior without rupture. No displaced intimal calcifications at this non-infused exam. No periaortic hemorrhage or inflammatory process. No pleural, pericardial or mediastinal hemorrhage, fluid or fluid collection. No pulmonary consolidation. No findings of pneumonia or edema. No suspicious lung mass. Sub-solid, subpleural nodule right upper lobe posteriorly 5 mm stable likely chronic benign scar. No axillary, hilar or mediastinal lymphadenopathy. No acute chest wall pathology. The visible upper abdominal structures unremarkable. IMPRESSION: Stable exam, showed no hemorrhage or acute pathology. Clear lungs. Aortic ectasia unruptured and stable. Chronic coronary artery atherosclerotic vascular calcifications, stable. Results of this exam have been discussed by phone with Dr. Billy by phone at time of dictation. Dictated by: Dictated on workstation # [id number]
== END 2022-09-10 13:30 | disposition home or self-care (01) ==
LOC: EDUNIT# 11:45 → ER 11:47 → CSD 14:05
PROVIDERS: ADMIT Family Medicine; ATTEND Family Medicine
DX: R07.89 Other chest pain (principal); I25.10 Atherosclerotic heart disease of native coronary artery without angina pectoris; I10 Essential (primary) hypertension; R91.1 Solitary pulmonary nodule; K44.9 Diaphragmatic hernia without obstruction or gangrene; K63.5 Polyp of colon; K21.9 Gastro-esophageal reflux disease without esophagitis; R63.4 Abnormal weight loss; F17.210 Nicotine dependence, cigarettes, uncomplicated; Z87.19 Personal history of other diseases of the digestive system; Z28.310 Unvaccinated for COVID-19
CPT/HCPCS: 71045; 71250; 71275; 80053; 80061; 82947 ×2; 83690; 83735; 83874; 83880; 84484; 85007; 85025; 85027; 85045; 85055; 85379; 85610; 85730; 93005; 93458; 96361 ×2; 99284; C1769; C1894; C8929; 36415; 93306

== ENCOUNTER → 2022-09-25 | Outpatient (CLI) | payer MEDICARE, OTHER ==
[~2022-09-25] MED LIST changes: +BALANCE OF NATURE PO; +FISH1CAP15 PO; +OMEP40CA6 PO
== END ==
LOC: RAD 07:56
PROVIDERS: ATTEND Surgery
DX: R11.0 Nausea (principal); Z53.9 Procedure and treatment not carried out, unspecified reason

== ENCOUNTER → 2022-09-25 | Outpatient (CLI) | payer MEDICARE, OTHER ==
--- NOTE | 2022-09-25 12:59 | Diagnostic Imaging Report ---
Indication: Routine screening. Comparison is made with prior mammogram 06/21/2013. 2-D and 3-D bilateral screening mammography was performed with CAD. Both breasts are heterogeneously dense, limiting the sensitivity of mammography. No mass or malignant-appearing microcalcifications are seen. There are benign calcifications bilaterally. Axillae are unremarkable. IMPRESSION: BI-RADS Category 2 No mammographic features suspicious for malignancy are identified. ACR BI-RADS Category 2: Benign findings. Result letter will be mailed to the patient. Note: At least 10% of breast cancer is not imaged by mammography. Dictated by: Dictated on workstation # [id number]
--- NOTE | 2022-09-25 13:44 | Diagnostic Imaging Report ---
PROCEDURE: US Gallbladder. TECHNIQUE: Multiple real-time grayscale images were obtained over the right upper quadrant in various projections. INDICATION: Nausea and intentional weight loss. The liver parenchyma appeared normal. Portal vein patent and normal in directional flow. There is no intra or extrahepatic bile duct dilatation. The gallbladder was normal. The pancreas unremarkable. The aorta and IVC unremarkable where visible. The unobstructed right kidney measuring 10.5 cm appeared normal. There was no ascites or acute fluid collection. IMPRESSION: Normal right upper quadrant ultrasound. Dictated by: Dictated on workstation # [id number]
== END ==
LOC: RAD 07:55
PROVIDERS: ATTEND Internal Medicine
DX: Z12.31 Encounter for screening mammogram for malignant neoplasm of breast (principal); R11.0 Nausea
CPT/HCPCS: 76705; 77063; 77067

== ENCOUNTER → 2022-10-15 | Outpatient (CLI) | payer MEDICARE, OTHER ==
[~2022-10-15] MED LIST changes: +CATHETER FLUSH 10 ML SYR IVP PRN
--- NOTE | 2022-10-15 10:22 | Diagnostic Imaging Report ---
EXAMINATION: Right upper quadrant pain. EXAMINATION: HIDA scan on 10/15/2022. FINDINGS: After the uneventful administration of 5.46 mCi of technetium Choletec intravenously, imaging of the abdomen was performed with prompt homogeneous uptake throughout the liver. The gallbladder and small bowel are seen within 70 minutes. Ensure was administered orally with continued imaging performed. The ejection fraction is calculated at 55.2%. IMPRESSION: 1. No obstructive process. 2. Normal ejection fraction. Dictated by: Dictated on workstation # [id number]
== END ==
LOC: CARD 07:39
PROVIDERS: ATTEND Surgery
DX: R10.31 Right lower quadrant pain (principal); R63.4 Abnormal weight loss
CPT/HCPCS: 78227; A9537